=== PATIENT | female | born 1995 | race American Indian/Alaskan Native ===

== ENCOUNTER 2020-05-07 08:00 | Outpatient (CLI) | payer OTHER ==
[2020-05-07 18:51] LABS: MUDS CUTOFF CONCENTRATIONS CUTOFF CONC BELOW:
[2020-05-07 19:34] LABS: BILIRUBIN,URINE NEGATIVE (NEGATIVE); GLUCOSE, URINE (UA) NEGATIVE (NEGATIVE); KETONES,URINE (UA) NEGATIVE (NEGATIVE); LEUKOCYTE ESTERASE, URINE NEGATIVE (NEGATIVE); NITRITE,URINE NEGATIVE (NEGATIVE); OCCULT BLOOD,URINE NEGATIVE (NEGATIVE); PROTEIN,URINE NEGATIVE (NEGATIVE); UROBILINOGEN,URINE 0.2 (NORMAL) E.U./dL (NORMAL)
[2020-05-07 20:05] LABS: CLARITY,URINE CLEAR (CLEAR)
[2020-05-07 20:06] LABS: BACTERIA,URINE Rare /HPF (None Seen); RBC,URINE 0-5 /HPF (0-5); SQUAMOUS EPITHELIAL CELL,UR FEW Squamous (<= Few); WBC,URINE 0-3 /HPF (0-5)
[2020-05-07 20:07] LABS: AMPHETAMINE SCREEN,URINE NEGATIVE (NEGATIVE); BARBITURATE SCREEN,UR NEGATIVE (NEGATIVE); BENZODIAZEPINES SCREEN, URINE NEGATIVE (NEGATIVE); COCAINE SCREEN URINE NEGATIVE (NEGATIVE); METHADONE SCREEN, URINE NEGATIVE (NEGATIVE); METHAMPHETAMINES SCREEN, URINE NEGATIVE (NEGATIVE); OPIATE SCREEN, URINE NEGATIVE (NEGATIVE); OXYCODONE SCREEN, URINE NEGATIVE (NEGATIVE); PROPOXYPHENE SCREEN, URINE NEGATIVE (NEGATIVE); THC CANNABINOID SCREEN, URINE NEGATIVE (NEGATIVE); TRICYCLIC ANTIDEPRESSANT,URINE NEGATIVE (NEGATIVE)
== END 2020-05-07 23:59 | disposition home or self-care (01) ==
LOC: LAB.R 08:00
PROVIDERS: ATTEND Nurse Practitioner Obstetrics & Gynecology
DX: Z32.01 Encounter for pregnancy test, result positive (principal)
CPT/HCPCS: 80306; 81001; 87086

== ENCOUNTER 2020-05-13 18:56 | Outpatient (CLI) | payer OTHER ==
--- NOTE | 2020-05-15 11:53 | Ultrasound Report ---
PROCEDURE: OB First Trimester INDICATIONS: POSITIVE TEST OUTSIDE/PRIOR DATING DATA: Last menstrual period (LMP): 03/06/2020 LMP-based estimated date of delivery (DAVINA): 12/11/2020. First dating scan (date and location): 05/13/2020. Estimated date of delivery (DAVINA) from first dating scan: 12/11/2020. TECHNIQUE: Real-time scanning was performed of the fetus and maternal pelvic organs, with image documentation. COMPARISON: FINDINGS: Embryo: A single living intrauterine gestation is present, with a crown-rump length of 29 mm, corre sponding 29 weeks 5 day gestation. A yolk sac is present. Measurement variability in dating: +/- 4 weeks by LMP, +/- 7 days by mean sac diameter (use before 6 weeks gestation if crown-rump length not able to be measured), +/- 5 days by crown-rump length (6-12 weeks gestation). Maternal organs: Ovaries grossly unremarkable. IMPRESSION: Early single living intrauterine gestation. Reviewed by: Kiki Christensen MD on 05/13/2020 9:22 PM PDT Approved by: Kiki Christensen MD on 05/13/2020 9:22 PM PDT Station ID: [id number]
== END 2020-05-13 18:57 | disposition home or self-care (01) ==
LOC: DI 18:56
PROVIDERS: ATTEND Nurse Practitioner Obstetrics & Gynecology
DX: Z32.01 Encounter for pregnancy test, result positive (principal)

== ENCOUNTER 2020-05-24 12:01 | Outpatient (CLI) | payer OTHER ==
[2020-05-24 12:26] LABS: BASOPHILS % (AUTO) 0.5 %; EOSINOPHILS # (AUTO) 0.1 10^3/uL (0.0-0.7); EOSINOPHILS % (AUTO) 1.2 %; HCT - HEMATOCRIT 40.1 % (37.0-47.0); HGB - HEMOGLOBIN 13.4 g/dL (12.0-16.0); LYMPHOCYTES # (AUTO) 1.9 10^3/uL (1.5-3.5); LYMPHOCYTES % (AUTO) 23.1 %; MEAN CORPUSCULAR HEMOGLOBIN 30.1 pg (27.0-31.0); MEAN CORPUSCULAR HGB CONC 33.4 g/dL (32.0-36.0); MEAN CORPUSCULAR VOLUME 90.1 fL (81.0-99.0); MEAN PLATELET VOLUME 9.6 fL (7.9-10.8); MONOCYTES # (AUTO) 0.5 10^3/uL (0.0-1.0); NEUTROPHILS # (AUTO) 5.8 10^3/uL (1.5-6.6); NEUTROPHILS % (AUTO) 68.7 %; PLT - PLATELET COUNT 253 10^3/uL (130-450); RED BLOOD COUNT 4.45 10^6/uL (4.20-5.40); RED CELL DISTRIBUTION WIDTH 12.4 % (12.0-15.0); WHITE BLOOD COUNT 8.4 x10^3/uL (4.8-10.8)
[2020-05-25 10:17] LABS: HEPATITIS B SURFACE ANTIGEN NON-REACTIVE (NON-REACTIVE)
[2020-05-25 12:16] LABS: HIV AG/AB 4TH GEN NON-REACTIVE (NON-REACTIVE)
[2020-05-25 12:36] LABS: HEPATITIS C ANTIBODY NON-REACTIVE (NON-REACTIVE)
== END 2020-05-24 12:02 | disposition home or self-care (01) ==
LOC: LAB 12:01
PROVIDERS: ATTEND Advanced Practice Midwife
DX: Z34.90 Encounter for supervision of normal pregnancy, unspecified, unspecified trimester (principal); Z36.89 Encounter for other specified antenatal screening
CPT/HCPCS: 36415; 85025; 86592; 86762; 86787; 86803; 86850; 86900; 86901; 87340; 87389

== ENCOUNTER 2020-07-27 15:13 | Outpatient (CLI) | payer OTHER ==
--- NOTE | 2020-07-27 23:20 | Ultrasound Report ---
PROCEDURE: OB Detailed Eval INDICATIONS: SUPERVISION OF NORMAL OUTSIDE/PRIOR DATING DATA: Last menstrual period (LMP): 03/06/2020. LMP-based estimated date of delivery (DAVINA): 12/11/2020. First dating scan (date and location): 05/13/2020. [facility] Estimated date of delivery (DAVINA) from first dating scan: 12/11/2020. The below data below was generated using the ultrasound DAVINA of 12/11/2020 TECHNIQUE: Real-time scanning was performed of the fetus, with image documentation and biometric measurements. Endovaginal scanning: Not performed COMPARISON: 05/13/2020 FINDINGS: General: A single living intrauterine gestation is present. Presentation: Cephalic Placenta: Placental position is posterior, without previa. Low-lying placenta 1 cm from the internal cervical os. Amniotic fluid index: 13.8 cm, normal for gestational age. Largest pocket 3.9 cm. heart rate: 136 beats per minute. Maternal cervical canal: 5.6 cm long; normal length is 2.5 cm or more. biometrics: Biparietal diameter: 4.8 cm, 20 weeks 4 days Head circumference: 17.9 cm, 20 weeks 3 days Abdominal circumference: 15.2 cm, 20 weeks 2 days Femur length: 3.5 cm, 21 weeks 1 day Estimated gestational age from initial scan: 20 weeks 3 days Composite gestational age from present scan: 20 weeks 4 days Estimated weight and percentile: 367 g, 57th percentile Measurement variability in biometric dating: +/- 10 days from 12-20 weeks gestation, +/- 2 weeks from 20-30 weeks gestation, +/- 3 weeks at 30 weeks gestation or later. Anatomic survey: Neuro: Ventricles are normal at less than 10 mm. Cisterna magna is normal at 3-11 mm. Cerebellum i s normal in size and morphology. Nuchal skin fold: Normal at less than 6 mm between 14 and 20 weeks gestational age. Face: Nose and lips are normal. profile not well seen. Spine: No evidence for spina bifida. Heart: 4-chambered heart is present, with normal LVOT. RVOT not well seen. Diaphragm: Diaphragm is intact. Stomach: Left-sided stomach is present. Kidneys: No hydronephrosis. Normal is less than 5 mm in 2nd trimester, less than 7 mm in 3rd trimester. Cord: 3 vessel cord has orthotopic insertion. Bladder: Normal in size. Extremities: All 4 extremities are visualized. IMPRESSION: 1. [place] living intrauterine at 20 weeks 4 days based on today's ultrasound. This is co ncordant with the first trimester ultrasound. Fetus is in the 57th percentile for weight. 2. Normal amniotic fluid. Low-lying placenta 1 cm from the internal cervical os. 3. profile and RVOT not well seen. Otherwise normal structures. Recommend follow-up OB ultrasound. Reviewed by: Ramakrishna Marc MD on 07/27/2020 11:19 PM PDT Approved by: Ramakrishna Marc MD on 07/27/2020 11:19 PM PDT Station ID: [id number]
== END 2020-07-27 15:14 | disposition home or self-care (01) ==
LOC: DI 15:13
PROVIDERS: ATTEND Nurse Practitioner Obstetrics & Gynecology
DX: Z36.89 Encounter for other specified antenatal screening (principal); O44.42 Low lying placenta NOS or without hemorrhage, second trimester; Z3A.20 20 weeks gestation of pregnancy

== ENCOUNTER 2020-08-06 18:55 | Outpatient (CLI) | payer OTHER ==
--- NOTE | 2020-08-07 11:35 | Ultrasound Report ---
PROCEDURE: OB F/U or Repeat INDICATIONS: SUPERVISION OF NORMAL OUTSIDE/PRIOR DATING DATA: Last menstrual period (LMP): 03/06/2020. LMP-based estimated date of delivery (DAVINA): 12/11/2020. First dating scan (date and location): 05/13/2020. Estimated date of delivery (DAVINA) from first dating scan: 12/11/2020. The below data below was generated using the first trimester ultrasound DAVINA of 12/11/2020 TECHNIQUE: Real-time scanning was performed of the fetus, with image documentation and biometric measurements. Endovaginal scanning: Not performed COMPARISON: 07/27/2020 FINDINGS: General: A single living intrauterine gestation is present. Presentation: Variable Placenta: Placental position is posterior low-lying, caudal edge is within 1 cm of the internal cerv ical os Amniotic fluid index: 15.6 cm, normal for gestational age. heart rate: 137 beats per minute. Maternal cervical canal: Closed, roughly 5.3 cm in length. Estimated gestational age from initial scan: 21 weeks, 6 days. Other: Cardiac outflow tracts are well seen and appear normal. 4 chambered heart appears normal. Fet al facial profile is normal. IMPRESSION: 1. Completion of anatomic survey with normal cardiac and facial features identified. 2. Posterior placenta remains within 1 cm of the internal cervical os. Consider follow-up in tr imester for further placental migration. Reviewed by: Sultana Le MD on 08/07/2020 11:34 AM PDT Approved by: Sultana Le MD on 08/07/2020 11:34 AM PDT Station ID: [id number]
== END 2020-08-06 18:56 | disposition home or self-care (01) ==
LOC: DI 18:55
PROVIDERS: ATTEND Nurse Practitioner Obstetrics & Gynecology
DX: Z34.00 Encounter for supervision of normal first pregnancy, unspecified trimester (principal); Z36.89 Encounter for other specified antenatal screening

== ENCOUNTER 2020-09-12 14:58 | Outpatient (CLI) | payer OTHER ==
[2020-09-12 16:22] LABS: HCT - HEMATOCRIT 32.8 % (37.0-47.0); MEAN CORPUSCULAR HEMOGLOBIN 31.1 pg (27.0-31.0); MEAN CORPUSCULAR HGB CONC 33.5 g/dL (32.0-36.0); MEAN CORPUSCULAR VOLUME 92.7 fL (81.0-99.0); MEAN PLATELET VOLUME 9.2 fL (7.9-10.8); RED BLOOD COUNT 3.54 10^6/uL (4.20-5.40); WHITE BLOOD COUNT 10.2 x10^3/uL (4.8-10.8)
== END 2020-09-12 14:59 | disposition home or self-care (01) ==
LOC: LAB 14:58
PROVIDERS: ATTEND Nurse Practitioner Obstetrics & Gynecology
DX: Z34.90 Encounter for supervision of normal pregnancy, unspecified, unspecified trimester (principal); Z36.89 Encounter for other specified antenatal screening
CPT/HCPCS: 36415; 82950; 85027

== ENCOUNTER 2020-10-23 07:35 | Outpatient (CLI) | payer OTHER ==
--- NOTE | 2020-10-23 16:57 | Ultrasound Report ---
PROCEDURE: OB F/U or Repeat INDICATIONS: LOW LYING PLECENTA OUTSIDE/PRIOR DATING DATA: Last menstrual period (LMP): 03/06/2020. LMP-based estimated date of delivery (DAVINA): 12/11/2020. First dating scan (date and location): 05/13/2020. Estimated date of delivery (DAVINA) from first dating scan: 12/11/2020. The below data below was generated using the same clinical and ultrasound DAVINA of 12/11/2020 TECHNIQUE: Real-time scanning was performed of the fetus, with image documentation and biometric measurements. COMPARISON: OB ultrasound 07/27/2020, 05/13/2020, 08/06/2020 FINDINGS: General: A single living intrauterine gestation is present. Presentation: Vertex Placenta: Placental position is posterior, without previa. Placenta remains low-lying currently óscar suring 1.1 cm from the internal os. Amniotic fluid index: 14 cm, within normal limits for gestational age. Largest pocket 5.0 cm. heart rate: 133 beats per minute. Maternal cervical canal: 5.5 cm long; normal length is 2.5 cm or more. biometrics: Estimated gestational age from initial scan: 33 weeks 0 days Other: Not applicable. IMPRESSION: 1. Single live intrauterine . 2. Low-lying placenta is present measuring 1.1 cm from the internal os. This is compared to 1 cm dist ance identified on both the 07/27/2020 as well as 08/06/2020 exams. Reviewed by: Neli Canales MD on 10/23/2020 4:55 PM PDT Approved by: Neli Canales MD on 10/23/2020 4:55 PM PDT Station ID: [id number]
--- NOTE | 2020-10-23 17:05 | Ultrasound Report ---
PROCEDURE: OB Transvaginal INDICATIONS: LOW LYING PLECENTA OUTSIDE/PRIOR DATING DATA: Last menstrual period (LMP): 03/06/2020. LMP-based estimated date of delivery (DAVINA): 12/11/2020. First dating scan (date and location): 05/13/2020. Estimated date of delivery (DAVINA) from first dating scan: 12/11/2020. The below data below was generated using the same clinical and ultrasound DAVINA of 12/11/2020 TECHNIQUE: Real-time scanning was performed of the fetus, with image documentation and biometric measurements. COMPARISON: OB ultrasound 07/27/2020, 05/13/2020, 08/06/2020 FINDINGS: General: A single living intrauterine gestation is present. Presentation: Vertex Placenta: Placental position is posterior, without previa. Placenta remains low-lying currently óscar suring 1.1 cm from the internal os. Amniotic fluid index: 14 cm, within normal limits for gestational age. Largest pocket 5.0 cm. heart rate: 133 beats per minute. Maternal cervical canal: 5.5 cm long; normal length is 2.5 cm or more. biometrics: Estimated gestational age from initial scan: 33 weeks 0 days Other: Not applicable. IMPRESSION: 1. Single live intrauterine . 2. Low-lying placenta is present measuring 1.1 cm from the internal os. This is compared to 1 cm dist ance identified on both the 07/27/2020 as well as 08/06/2020 exams. Reviewed by: Neli Canales MD on 10/23/2020 5:03 PM PDT Approved by: Neli Canales MD on 10/23/2020 5:03 PM PDT Station ID: [id number]
== END 2020-10-23 07:36 | disposition home or self-care (01) ==
LOC: DI 07:35
PROVIDERS: ATTEND Nurse Practitioner Obstetrics & Gynecology
DX: O44.03 Complete placenta previa NOS or without hemorrhage, third trimester (principal); Z3A.33 33 weeks gestation of pregnancy

== ENCOUNTER 2020-11-13 15:20 | Outpatient (CLI) | payer OTHER ==
--- NOTE | 2020-11-14 09:38 | Ultrasound Report ---
PROCEDURE: OB F/U or Repeat INDICATIONS: LOW LYING PLACENTA OUTSIDE/PRIOR DATING DATA: Last menstrual period (LMP): 03/06/2020. LMP-based estimated date of delivery (DAVINA): 12/11/2020. First dating scan (date and location): 05/13/2020. Estimated date of delivery (DAVINA) from first dating scan: 12/11/2020. TECHNIQUE: Real-time scanning was performed of the fetus, with image documentation and biometric measurements. Endovaginal scanning: No COMPARISON: OB ultrasound, 10/23/2020 and 08/06/2020. FINDINGS: General: A single living intrauterine gestation is present. Presentation: Vertex Placenta: Placental position is posterior, without previa. Amniotic fluid index: 15.5 cm, normal for gestational age. heart rate: 132 beats per minute. Maternal cervical canal: 5.6 cm long; normal length is 2.5 cm or more. Estimated gestational age from initial scan: 36 weeks 0 days Other: Not applicable. IMPRESSION: 1. Single living IUP redemonstrated. 2 Low lying placenta has resolved with the inferior aspect of the placenta 3.1 cm above the internal cervical os. Reviewed by: LIONEL Allan on 11/14/2020 9:37 AM PDT Approved by: Yoko Marcano MD on 11/14/2020 9:37 AM PDT Station ID: [id number]
== END 2020-11-13 15:21 | disposition home or self-care (01) ==
LOC: DI 15:20
PROVIDERS: ATTEND Nurse Practitioner Obstetrics & Gynecology
DX: O44.00 Complete placenta previa NOS or without hemorrhage, unspecified trimester (principal); Z3A.36 36 weeks gestation of pregnancy

== ENCOUNTER 2020-11-15 13:24 | Emergency (ER) | payer OTHER ==
[2020-11-15 13:39] VITALS: BP 121/77
--- NOTE | 2020-11-15 13:55 | ED Physician Documentation ---
PD HPI URI - Stated complaint Stated Complaint: C+ ? - 36WK OB - Chief complaint Chief Complaint: Fever - History obtained from History obtained from: Patient - History of Present Illness Timing - onset: Today Timing duration: Days (1) Timing details: Gradual onset Pain level max: 3 Pain level now: 3 Associated symptoms: Fever, Chills Contributing factors: Sick contact Improves by: Other (sitting up) Worsened by: Other (lying flat) Recently seen: Clinic (OB) - Additional information Additional information: Patient is a 24-year-old female who presents to the emergency department stating that her has been tested positive for Covid, she took a home test yesterday which was negative but started having fever, body aches and cough today. Better with cough medication. Nothing makes it worse. She is about 36 weeks . She states she only feels mildly short of breath when she is lying flat, but states that she has felt this way with her as well. No history of lung issues. Review of Systems Constitutional: reports: Fever (101), Chills GI: denies: Abdominal Pain, Vomiting, Diarrhea Skin: denies: Rash Musculoskeletal: denies: Neck pain, Back pain Neurologic: denies: Headache PD PAST MEDICAL HISTORY - Past Medical History Past Medical History: No - Past Surgical History Past Surgical History: Yes Ortho: Other HEENT: Tonsil/Adenoidectomy - Present Medications Home Medications: Ambulatory Orders Medication Instructions Recorded Confirmed Iron Fum,Ps/Folic/Bcomp,C No.9 1 each PO DAILY 11/15/20 11/15/20 [Virt-Fefa Plus Capsule] - Allergies Allergies/Adverse Reactions: Allergies Allergy/AdvReac Type Severity Reaction Status Date / Time naproxen Allergy Nausea Verified 11/15/20 13:39 - Social History Does the pt smoke?: No Smoking Status: Never smoker Does the pt drink ETOH?: No Does the pt have substance abuse?: No - Immunizations Immunizations are current?: Yes PD ED PE NORMAL - Vitals Vital signs reviewed: Yes - General General: Alert and oriented X 3, No acute distress - HEENT HEENT: Ears normal, Moist mucous membranes, Pharynx benign - Neck Neck: Supple, no meningeal sign - Cardiac Cardiac: RRR, Strong equal pulses - Respiratory Respiratory: No respiratory distress, Clear bilaterally - Abdomen Abdomen: Soft, Other (gravid) - Derm Derm: Warm and dry - Extremities Extremities: No edema, No calf tenderness / cord - Neuro Neuro: Alert and oriented X 3 - Psych Psych: Normal mood, Normal affect Results - Vitals Vitals: Vital Signs - 24 hr 11/15/20 13:34 Temperature 36.8 C Heart Rate 103 H Respiratory 16 Rate Blood Pressure 121/77 O2 Saturation 99 Oxygen O2 Source Room air PD MEDICAL DECISION MAKING - ED course Complexity details: considered differential, d/w patient ED course: Patient with concern for potential Covid. Covid testing performed. She will follow up with her doctor in the patient portal for results. Counseled regarding monoclonal antibody therapy. hospital is currently critically low on monoclonal antibodies, may not be available when her test result is positive. Recommend that she call to ensure availability. No indication for x-ray. No hypoxia or respiratory distress. Lungs are clear to auscultation bilaterally. Patient counseled regarding signs and symptoms for which I believe and urgent re-evaluation would be necessary. Patient with good understanding of and agreement to plan and is comfortable going home at this time This document was made in part using voice recognition software. While efforts are made to proofread this document, sound alike and grammatical errors may occur. Departure - Departure Disposition: 01 Home, Self Care Clinical Impression: Viral URI Condition: Good Instructions: ED URI Viral Follow-Up: your,doctor in 1 week [Other] Comments: You have a Covid test pending. You need to self quarantine until the result is done and negative. The results should be done in 24-48 hours. We will call with a positive result, the fastest way to get a negative result for confirmation though is to go to the hospital website at [email or web address], click on the my [email or web address] tab and sign up for the patient portal. If any of your friends and/or family need to be tested, they can call the hospital at [phone] for an appointment to have their Covid test. As we discussed, you may be a candidate for monoclonal antibody therapy if your test is positive, however please call to ensure that we have the monoclonal antibody in stock, as currently supply is very low if not out already and the medication is backordered.
== END 2020-11-15 14:00 | disposition home or self-care (01) ==
LOC: ED 13:24
DX: O98.513 Other viral diseases complicating pregnancy, third trimester (principal); O99.513 Diseases of the respiratory system complicating pregnancy, third trimester; U07.1 COVID-19; J06.9 Acute upper respiratory infection, unspecified; Z3A.36 36 weeks gestation of pregnancy
CPT/HCPCS: 99282; 99283

== ENCOUNTER 2020-11-15 20:44 | Outpatient (CLI) | payer OTHER ==
[2020-11-15 21:43] LABS: BASOPHILS % (AUTO) 0.4 %; EOSINOPHILS # (AUTO) 0.1 10^3/uL (0.0-0.7); HCT - HEMATOCRIT 34.9 % (37.0-47.0); HGB - HEMOGLOBIN 11.4 g/dL (12.0-16.0); LYMPHOCYTES # (AUTO) 1.4 10^3/uL (1.5-3.5); LYMPHOCYTES % (AUTO) 20.4 %; MEAN CORPUSCULAR HEMOGLOBIN 30.6 pg (27.0-31.0); MEAN CORPUSCULAR HGB CONC 32.7 g/dL (32.0-36.0); MEAN CORPUSCULAR VOLUME 93.6 fL (81.0-99.0); MEAN PLATELET VOLUME 9.6 fL (7.9-10.8); MONOCYTES # (AUTO) 0.7 10^3/uL (0.0-1.0); MONOCYTES % (AUTO) 10.7 %; NEUTROPHILS # (AUTO) 4.4 10^3/uL (1.5-6.6); PLT - PLATELET COUNT 178 10^3/uL (130-450); RED BLOOD COUNT 3.73 10^6/uL (4.20-5.40); RED CELL DISTRIBUTION WIDTH 13.7 % (12.0-15.0); WHITE BLOOD COUNT 6.7 x10^3/uL (4.8-10.8)
[2020-11-15 21:48] LABS: BILIRUBIN,URINE NEGATIVE (NEGATIVE); GLUCOSE, URINE (UA) NEGATIVE (NEGATIVE); KETONES,URINE (UA) NEGATIVE (NEGATIVE); LEUKOCYTE ESTERASE, URINE NEGATIVE (NEGATIVE); NITRITE,URINE NEGATIVE (NEGATIVE); OCCULT BLOOD,URINE NEGATIVE (NEGATIVE); PROTEIN,URINE NEGATIVE (NEGATIVE); UROBILINOGEN,URINE 0.2 (NORMAL) E.U./dL (NORMAL)
[2020-11-15 21:49] LABS: CLARITY,URINE CLEAR (CLEAR)
[2020-11-15] MEDS ORDERED: MORPHINE 10 MG/ML VIAL IM STA ×2 (21:52→22:21)
[2020-11-15] MEDS ORDERED: MORPHINE 10 MG/ML VIAL ONE ×2 (22:00→22:21)
[2020-11-15 22:43] LABS: B. PARAPERTUSSIS- RESP PCR PAN NOT DETECTED; B. PERTUSSIS- RESP PCR PANEL NOT DETECTED; C. PNEUMONIAE- RESP PCR PANEL NOT DETECTED; CORONAVIRUS 229E-RESP PCR NOT DETECTED; CORONAVIRUS HKU1-RESP PCR NOT DETECTED; CORONAVIRUS NL63-RESP PCR NOT DETECTED; CORONAVIRUS OC43-RESP PCR NOT DETECTED; HUMAN METAPNEUMOVIRUS NOT DETECTED; INFLUENZA A- RESP PCR PANEL NOT DETECTED; INFLUENZA B - RESP PCR PANEL NOT DETECTED; M. PNEUMONIAE- RESP PCR PANEL NOT DETECTED; PARAINFLUENZA VIRUS 1 NOT DETECTED; PARAINFLUENZA VIRUS 2 NOT DETECTED; PARAINFLUENZA VIRUS 3 NOT DETECTED; PARAINFLUENZA VIRUS 4 NOT DETECTED; RHINOVIRUS/ENTEROVIRUS NOT DETECTED; RSV- RESP PCR PANEL NOT DETECTED; SARS-CoV-2 -RESP PCR PANEL DETECTED
[2020-11-15] MEDS ORDERED: LACTATED RINGERS 500 ML IV ONE (23:12)
[2020-11-16 02:32] VITALS: BP 119/68
--- NOTE | 2020-11-16 07:15 | Ultrasound Report ---
PROCEDURE: OB Limited INDICATIONS: lower left abdominal pain-visualize placenta OUTSIDE/PRIOR DATING DATA: Last menstrual period (LMP): 03/06/2020. LMP-based estimated date of delivery (DAVINA): 12/01/2020. First dating scan (date and location): 05/13/2020. Estimated date of delivery (DAVINA) from first dating scan: 12/11/2020. The below data below was generated using the ultrasound DAVINA of 12/11/2020 TECHNIQUE: Real-time scanning was performed of the fetus, with image documentation. Endovaginal scanning: COMPARISON: None. FINDINGS: A single living intrauterine gestation is present. Presentation: Cephalic Placenta: Placental position is posterior, without previa. A placental barraza is incidentally noted. Amniotic fluid index: 14.1 cm, normal for gestational age. heart rate: 160 beats per minutes. Maternal cervical canal: Not imaged Estimated gestational age from initial scan: 36 weeks 2 days anatomy: Chest/diaphragm, stomach/abdomen, bilateral renal regions, and urinary bladder/pelvis were visualized and appeared normal.. IMPRESSION: Live intrauterine with a gestational age 36 weeks 2 days. Findings above correspond with preliminary findings by [facility]. Reviewed by: Brayan Torres on 11/16/2020 7:13 AM PDT Approved by: Brayan Torres on 11/16/2020 7:13 AM PDT Station ID: [id number]
--- NOTE | 2020-11-16 09:21 | Ultrasound Report ---
PROCEDURE: OB Biophysical Profile INDICATIONS: well being r/t covid-19 positive pt OUTSIDE/PRIOR DATING DATA: Last menstrual period (LMP): 03/06/2020. LMP-based estimated date of delivery (DAVINA): 12/11/2020. First dating scan (date and location): 05/13/2020. Estimated date of delivery (DAVINA) from first dating scan: 12/11/2020. The below data below was generated using the ultrasound DAVINA of 12/11/2020 TECHNIQUE: Real-time scanning was performed of the fetus, with image documentation and biometric óscar surements. Biophysical profile was also obtained. COMPARISON: None. FINDINGS: General: A single living intrauterine gestation is present. Presentation: Cephalic Placenta: Placental position is posterior with fundal with fundal wrap to maternal left, without pre via. Amniotic fluid index: 17.5 cm, normal for gestational age. heart rate: 137 beats per minute. Maternal cervical canal: Closed biometrics: Estimated gestational age from initial scan: 36 weeks 3 days. Estimated weight and percentile: Not obtained Measurement variability in biometric dating: +/- 10 days from 12-20 weeks gestation, +/- 2 weeks from 20-30 weeks gestation, +/- 3 weeks at 30 weeks gestation or later. Biophysical profile: Tone: 2 points. Movement: 2 points. Respiration: 0 points. Largest pocket of fluid: 2 points. 6.6 cm. Umbilical artery Doppler: Proximal 3.28, mid 3.07, distal 2.59 IMPRESSION: 1. Biophysical profile 6/8 (respirations not identified) 2. IVET 17.5. 3. SD ratios are within normal limits but are at the upper limits of normal proximally. Reviewed by: Brayan Torres on 11/16/2020 9:20 AM PDT Approved by: Brayan Torres on 11/16/2020 9:20 AM PDT Station ID: [id number]
--- NOTE | 2020-11-16 13:21 | PROVIDER PROGRESS NOTE ---
- HPI Chief Complaint: Labor Check Current : Current EDU 12/11/20 Gestation 36 Weeks and 3 Days 1 Para 0 Vital Signs Temperature 37.7 C 11/15/20 22:05 Heart Rate 92 11/15/20 22:05 Respiratory Rate 22 11/15/20 22:05 Blood Pressure 116/68 11/15/20 22:05 O2 Saturation 100 11/15/20 22:05 Temperature 36.6 C 11/16/20 01:35 Heart Rate 91 11/16/20 01:35 Respiratory Rate 18 11/16/20 01:35 Blood Pressure 119/68 11/16/20 01:35 O2 Saturation 100 11/16/20 01:35 - Procedures OB Procedure Performed: NST Diagnosis/Indication for NST: Other NST Procedure: NST Procedure Start Date 11/15/20 Start Time 21:00 Stop Time 21:30 Vibroacoustic Stimulation Used No Patient States Movement Yes - Plan Plan: Adele is a 24yo @ 36.3wks gestation by LMP c/w 9.5wk U/S who presents with c/o left lower quadrant abdominal pain and cramping for the past several hours. In addition she is experiencing fever, body aches, chills, cough, congestion and chest pressure and has known exposure to COVID-19 positive in her household. She took a rapid home test yesterday which was negative. She states she has been able to keep on top of her fluid intake and feels she is hydrated at this time. She denies vaginal bleeding or leakage of fluid. She states she is unsure if the pain in her lower left quadrant is contraction pain or not but is concerned she may be in labor. She reports +FM. She has taken Tylenol 1000mg which improved her fever and states the highest it has been in 101. She denies nausea, vomiting, constipation and diarrhea. NST performed 11/15/2020-11/16/2020 NST read 11/16/2020 FHR baseline 150s, moderate variability with intermittent periods of minimal variability and few accelerations with no decelerations. Uterine irritability noted via tocometry Appears ill and fatigued, heart RRR w/o M/G/R, lungs CTAB, abdomen gravid, soft, and tender only to left lower quadrant with no other abdominal tenderness noted, bilateral LE's no edema. SVE closed/thick/high Vital signs: 116/68, HR 92, RR 22, O2 100 on room air, T 37.7 Imaging: Ultrasound inconclusive for placental abruption per initial report secondary to posterior location however forward portion visualized and appears WNL. Final report states posterior placenta, no previa. Incidentally noted placental barraza. BPP 6/8 with 0 for respiratory. 8/10 total with NST however this was after >1 hour of monitoring and was non-reactive in the initial 30 minutes with intermittent periods of minimal variability. Labs: Nasal SARS-CoV-2 (PCR) - POSITIVE WBC 6.7 Hgb 11.4; Hct 34.9 PLT 178 UA negative 500mL LR IV fluid. 10mg Morphine IM - pt states her pain improved initially but then returned. Assessment: 24yo @ 36.3wks gestation by LMP c/w 9.5wk U/S Left round ligament strain COVID-positive BPP 8/10 Plan: Obstetric and concerns ruled out. Encouraged bracing with coughing and warm compresses. Continue tylenol 1000mg q 8 hrs PRN pain or fever. Discussed safe medications for management of congestion. Discussed appropriate use of heat and ice to affected area. Secondary to patient feeling worsening respiratory symptoms, faintness, and fatigue she was discharged from OB triage and sent to the ED for evaluation and management of COVID symptoms. Pt will return in 24hrs for repeat NST or sooner PRN. Pt released with precautions. Strongly encouraged her to obtain pulse oximetry to track her O2 saturation and reviewed precautions/when to seek care in depth. Pt has emergency contact number. Pt verbalized understanding and agrees to above plan. She denies further questions or concerns at this time. Consult with continuous miner operator helper physician regarding above clinical picture and plan of care who verbalized agreement with the above plan and denies changes at this time. FINAL DIAGNOSIS: False labor <37wks gestation Left round ligament pain
== END 2020-11-16 01:40 | disposition home or self-care (01) ==
LOC: WFO 20:44 → FBP 20:45 → WFO 11-16 01:40
PROVIDERS: ATTEND Nurse Practitioner Obstetrics & Gynecology
DX: O47.03 False labor before 37 completed weeks of gestation, third trimester (principal); S39.011A Strain of muscle, fascia and tendon of abdomen, initial encounter; X58.XXXA Exposure to other specified factors, initial encounter; O9A.213 Injury, poisoning and certain other consequences of external causes complicating pregnancy, third trimester; O98.513 Other viral diseases complicating pregnancy, third trimester; U07.1 COVID-19; Z3A.36 36 weeks gestation of pregnancy
CPT/HCPCS: 0202U; 36415; 59025; 81001; 81003; 85025; 87086; 99214

== ENCOUNTER 2020-11-16 01:31 | Emergency (ER) | payer OTHER ==
[2020-11-16 01:59] VITALS: BP 107/61
[2020-11-16] MEDS ORDERED: ACETAMINOPHEN 500 MG TABLET PO STA (02:28)
--- NOTE | 2020-11-16 02:34 | ED Physician Documentation ---
History of Present Illness - Stated complaint Stated Complaint: COVID POS, FEVER, COUGH, LOW ABD/BACK PX - Chief complaint Chief Complaint: General - History obtained from History obtained from: Patient - Additonal information Additional information: Patient comes emergency department chief complaint of left low back pain. The patient states that it started around 1800 and that it shoots from her left lumbar musculature area over toward her hip. She states she has had occasional pains going down her left leg. Patient denies any hematuria or dysuria. No vaginal bleeding. No fevers. The patient was just diagnosed with Covid today and has been doing some coughing. She is 36 weeks , and just before this, went to see her PRINCIPAL ASSOCIATE, who did labs, urinalysis, and an ultrasound, all of which were unremarkable. Patient was also sent for monitoring labor and delivery. She was given 10 mg of morphine IV while there, but states that when she moves certain ways she still gets shooting pain. Patient states she has to lie perfectly still on her side to keep from hurting. The patient states that she has not had pain to this degree so far in her , though she did have some similar pain to a lesser degree earlier. Patient states she is managed that when it comes up with Tylenol. Patient denies any other complaints at this time. No shortness of breath. No chest pain. No distinct injury. Review of Systems Ten Systems: 10 systems reviewed and negative Constitutional: reports: Reviewed and negative Eyes: reports: Reviewed and negative Ears: reports: Reviewed and negative Nose: reports: Reviewed and negative Throat: reports: Reviewed and negative Cardiac: reports: Reviewed and negative Respiratory: reports: Reviewed and negative GI: reports: Reviewed and negative : reports: Reviewed and negative Skin: reports: Reviewed and negative Musculoskeletal: reports: Back pain Neurologic: reports: Reviewed and negative Psychiatric: reports: Reviewed and negative Endocrine: reports: Reviewed and negative Immunocompromised: reports: Reviewed and negative PD PAST MEDICAL HISTORY - Past Surgical History Past Surgical History: Yes Ortho: Other HEENT: Tonsil/Adenoidectomy - Present Medications Home Medications: Ambulatory Orders Medication Instructions Recorded Confirmed Iron Fum,Ps/Folic/Bcomp,C No.9 1 each PO DAILY 11/15/20 11/15/20 [Virt-Fefa Plus Capsule] - Allergies Allergies/Adverse Reactions: Allergies Allergy/AdvReac Type Severity Reaction Status Date / Time naproxen Allergy Nausea Verified 11/15/20 13:39 - Social History Does the pt smoke?: No Smoking Status: Never smoker Does the pt drink ETOH?: No Does the pt have substance abuse?: No - Immunizations Immunizations are current?: Yes PD ED PE NORMAL - Vitals Vital signs reviewed: Yes - General General: Alert and oriented X 3, No acute distress - HEENT HEENT: Atraumatic, PERRL, EOMI, Moist mucous membranes - Neck Neck: Supple, no meningeal sign - Cardiac Cardiac: RRR, No murmur, Strong equal pulses - Respiratory Respiratory: No respiratory distress, Clear bilaterally - Abdomen Abdomen: Soft, Non tender, Other (Gravid) - Back Back: No CVA TTP, No spinal TTP, Other (Tenderness left lumbar paraspinal musculature focally.) - Derm Derm: Normal color, Warm and dry, No rash - Extremities Extremities: No deformity, No edema, No calf tenderness / cord - Neuro Neuro: Alert and oriented X 3, car shifter 2-12 intact, Normal speech - Psych Psych: Normal mood, Normal affect Results - Vitals Vitals: Vital Signs - 24 hr 11/16/20 11/16/20 01:39 02:42 Temperature 37.0 C 37.0 C Heart Rate 76 76 Respiratory 28 H 24 Rate Blood Pressure 107/61 107/61 O2 Saturation 100 99 Oxygen O2 Source Room air PD MEDICAL DECISION MAKING - ED course Complexity details: considered differential, d/w patient ED course: I discussed with the patient that there is really not much else from the an emergency perspective that can be done in terms of either diagnosing or treating her pain. The patient has completely normal vital signs. She has focal tender ness in her lumbar musculature and her pain seems to be mechanical and positional. She has equal pulses distally and I do not suspect an aneurysm or dissection of the aorta at this time. Patient is neurologically intact and without vaginal symptoms and has been cleared by OB. Additionally, her labs are unremarkable. I have advised the patient that I do not feel it is in her interest or the babies to give her any further narcotics in the emergency department at this time. We have discussed using Tylenol, heat, ice, stretching, and massage to help with some of the discomfort. I also suspect her back pain will improve when her cough improves. We have discussed the need for follow-up with OB. Departure - Departure Disposition: 01 Home, Self Care Clinical Impression: Back pain affecting in third trimester Condition: Stable Instructions: Preg Back Pain, ED Pelvic Pain Preg UKO 2 or 3 Tri Comments: You have had extensive testing today, all of which has been reassuring, Except for the positive Covid test. At this point in time, given the coughing and your late stage of , as well as the symptoms and circumstances you have described, your pain appears musculoskeletal in nature. This is a very common malady in late and is Due to a variety of factors, including the weight and positioning of your uterus, the natural loosening of joints that occurs in preparation for , and the altered mechanics of your back, secondary to the . Additionally, the coughing as further mechanical strain. You have been treated with a full dose of morphine already, and you are unable to receive anti-inflammatories, due to your late stage . The only other treatment during for your pain is Tylenol, which you may take at normal doses. Unfortunately, there is no medication that is going to really take this pain away, and you will need to use other methods to try to avoid and improve your symptoms, such as positioning, ice, heat, massage, and stretching. As her cough subsides, the back pain also may improve, but given your late stage of , it is also possible that this will be an issue on and off until your baby is delivered. Please continue to follow-up with your OB specialist, as scheduled. You may address any further concerns with her. At this time, your physical exam and vital signs, as well as the testing that you have had done earlier today, do not suggest an emergent cause of your pain. Additionally, monitoring of your baby is reassuring. Discharge Date/Time: 11/16/20 02:47
== END 2020-11-16 02:47 | disposition home or self-care (01) ==
LOC: ED 01:31
DX: O98.513 Other viral diseases complicating pregnancy, third trimester (principal); U07.1 COVID-19; O99.891 Other specified diseases and conditions complicating pregnancy; M54.5 Low back pain; Z3A.36 36 weeks gestation of pregnancy
CPT/HCPCS: 99282; 99283; A9270; 80053; 83690; 85025

== ENCOUNTER 2020-11-16 18:12 | Outpatient (CLI) | payer OTHER ==
[2020-11-16 18:29] VITALS: BP 130/76
--- NOTE | 2020-11-21 17:09 | PROCEDURE REPORT ---
- HPI Diagnosis/Indication for NST: Other Current EDU 12/11/20 Gestation 36 Weeks and 4 Days 1 Para 0 Vital Signs Temperature 36.9 C 11/16/20 18:28 Heart Rate 87 11/16/20 18:28 Respiratory Rate 18 11/16/20 18:28 Blood Pressure 130/76 11/16/20 18:28 O2 Saturation 100 11/16/20 18:28 Temperature 36.9 C 11/16/20 18:28 Heart Rate 87 11/16/20 18:28 Respiratory Rate 18 11/16/20 18:28 Blood Pressure 130/76 11/16/20 18:28 O2 Saturation 100 11/16/20 18:28 - NST Procedure NST Procedure Start Date 11/16/20 Start Time 18:23 Stop Time 18:58 Vibroacoustic Stimulation Used No Patient States Movement Yes: Decreased - Results and Plan Plan: NST performed 11/16/2020 NST read 11/16/2020 NST reactive. FHR baseline 140s, moderate variability, + accels, no decels No contractions appreciated via tocometry
== END 2020-11-16 19:00 | disposition home or self-care (01) ==
LOC: WFO 18:12 → FBP 18:13 → WFO 19:00
PROVIDERS: ATTEND Nurse Practitioner Obstetrics & Gynecology
DX: O36.8130 Decreased fetal movements, third trimester, not applicable or unspecified (principal); Z3A.36 36 weeks gestation of pregnancy; O47.03 False labor before 37 completed weeks of gestation, third trimester; S39.011A Strain of muscle, fascia and tendon of abdomen, initial encounter; X58.XXXA Exposure to other specified factors, initial encounter; O9A.213 Injury, poisoning and certain other consequences of external causes complicating pregnancy, third trimester; O98.513 Other viral diseases complicating pregnancy, third trimester; U07.1 COVID-19; O99.513 Diseases of the respiratory system complicating pregnancy, third trimester; J06.9 Acute upper respiratory infection, unspecified; O99.891 Other specified diseases and conditions complicating pregnancy; M54.5 Low back pain
CPT/HCPCS: 0202U; 36415; 59025; 76815; 76819; 81003; 85025; 87635; 96372; 99282; 99283; A9270; J7120; 80053; 81001; 83690; 87086; 99214

== ENCOUNTER 2020-11-23 12:00 | Outpatient (CLI) | payer OTHER | END 2020-11-23 23:59 | disposition home or self-care (01) | LOC: LAB.WC 12:00 | PROVIDERS: ATTEND Nurse Practitioner Obstetrics & Gynecology | DX: Z36.85 Encounter for antenatal screening for Streptococcus B (principal) | CPT/HCPCS: 87797 ==

== ENCOUNTER 2020-12-12 12:48 | Inpatient (IN) | payer OTHER ==
[2020-12-12] MEDS ORDERED: SODIUM CHLORIDE FLUSH 0.9% 10 ML SYRINGE IVP PRN (13:56)
[2020-12-12] MEDS ORDERED: LIDOCAINE-MPF 1% 30 ML VIAL ID PRN (13:56)
[2020-12-12] MEDS ORDERED: METHYLERGONOVINE 0.2 MG/ML VIAL IM PRN (13:56)
[2020-12-12] MEDS ORDERED: ONDANSETRON 4 MG/2 ML VIAL IVP PRN (13:56)
[2020-12-12] MEDS ORDERED: CARBOPROST TROMETHAMINE 250 MCG/ML AMP IM PRN (13:56)
[2020-12-12] MEDS ORDERED: OXYTOCIN 10 UNIT/ML VIAL IM PRN (13:56)
[2020-12-12] MEDS ORDERED: miSOPROStoL 200 MCG TABLET BC PRN (13:56)
[2020-12-12] MEDS ORDERED: TRANEXAMIC ACID IN NACL 1,000 MG/100 ML BAG IV PRN (13:56)
[2020-12-12 14:03] LABS: BASOPHILS % (AUTO) 0.2 %; EOSINOPHILS # (AUTO) 0.1 10^3/uL (0.0-0.7); EOSINOPHILS % (AUTO) 0.8 %; HCT - HEMATOCRIT 36.8 % (37.0-47.0); HGB - HEMOGLOBIN 12.3 g/dL (12.0-16.0); LYMPHOCYTES % (AUTO) 18.7 %; MEAN CORPUSCULAR HEMOGLOBIN 30.6 pg (27.0-31.0); MEAN CORPUSCULAR HGB CONC 33.4 g/dL (32.0-36.0); MEAN CORPUSCULAR VOLUME 91.5 fL (81.0-99.0); MEAN PLATELET VOLUME 10.7 fL (7.9-10.8); MONOCYTES # (AUTO) 0.7 10^3/uL (0.0-1.0); MONOCYTES % (AUTO) 6.9 %; NEUTROPHILS # (AUTO) 7.6 10^3/uL (1.5-6.6); PLT - PLATELET COUNT 216 10^3/uL (130-450); RED BLOOD COUNT 4.02 10^6/uL (4.20-5.40); RED CELL DISTRIBUTION WIDTH 14.1 % (12.0-15.0); WHITE BLOOD COUNT 10.8 x10^3/uL (4.8-10.8)
[2020-12-12] MEDS: miSOPROStoL 100 MCG TABLET BC SCH ×2 (14:35→20:08)
--- NOTE | 2020-12-12 16:19 | HISTORY & PHYSICAL EXAMINATION ---
Admit History - Visit Reason Visit Reason: Other - : 1 Parity: 0 Premature: 0 Ectopic: 0 : 0 Care: positive: [facility] Risk/History: positive: None Complications This : positive: None Smoking Status: Never smoker - Mother's Labs Mother's Blood Type: positive: O Mother's RH: positive: Positive GBS: positive: Group B Strep Positive Rubella Status: positive: Immune Meds/Allgy - Home Medications Home Medications: Ambulatory Orders Medication Instructions Recorded Confirmed Iron Fum,Ps/Folic/Bcomp,C No.9 1 each PO DAILY 11/15/20 11/15/20 [Virt-Fefa Plus Capsule] - Allergies Allergies/Adverse Reactions: Allergies Allergy/AdvReac Type Severity Reaction Status Date / Time naproxen Allergy Nausea Verified 11/15/20 13:39 Review of Systems - Constitutional Constitutional: denies: Fever, Chills, Malaise - Eyes Eyes: denies: Blurred vision, Spots in vision, Dipolpia - Cardiovascular Cariovascular: denies: Irregular heart rate, Palpitations, Chest pain - Respiratory Respiratory: denies: Cough, SOB at rest - Gastrointestinal Gastrointestinal: denies: Constipation, Diarrhea, Change in bowel habits - Integumentary Integumentary: denies: Rash, Pruritis - Neurological Neurological: denies: Headache Physical - Abdominal Exam Vital Signs: Temp Pulse Resp BP Pulse Ox 36.7 C 78 16 133/76 H 12/12/20 14:04 12/12/20 14:04 12/12/20 14:04 12/12/20 14:04 Contraction Frequency (min/apart): intermittent Contraction Intensity: positive: Mild Uterine Resting Tone: positive: Soft - Monitoring Heart Rate Baseline: 150 Strip Review: positive: Category I - Presentation Presentation: positive: Vertex - Vaginal Exam Membranes: positive: Membranes intact Dilation (in cm): 1 Effacement (%): 50 Station: positive: -3 Cervical Position: positive: Posterior - Speculum Exam Speculum Exam Performed: positive: No Plan for Labor - Plan For Labor I expect patient to be DC'd or transferred within 96 hours.: Yes Plan for Labor: Adele presents to [facility] for elective induction of labor at 40.1wks gestation. She denies changes VB, Lof, or contractions and she reports +FM. SVE deferred upon arrival secondary to absence of contractions appreciated by pt and SVE yesterday /-3 and posterior. She has been a patient of [facility] for the duration of her which has been complicated by her COVID infection at 35wks gestation as well as a low lying placenta which did resolve on repeat ultrasound and on most recent ultrasound was noted to be 3.3cm from the internal cervical os. She is also noted to be GBS positive. Dating criteria: LMP 03/06/2020 - DAVINA by LMP 03/06/2020 Initial U/S @ 9.5wks gestation c/w LMP dating Serial exams - agree OB Hx: G1: Current Medications: PNV; ferrous sulfate 325mg PO daily Allergies: Naproxen (Severe) PMHx: unremarkable PSHx: ankle reconstructed (2011) Social Hx: Never smoker. No ETOH or IVDA. Family Hx: DE <65 MGM; HTN - MGM; Lung cancer - PGF; Asthma- PGM; Alcoholism and drug abuse - MGF course: LMP 03/06/2020 LMP davina: 12/11/2020 Initial U/S: at 9.5wks c/w LMP for FINAL davina 12/11/2020 O pos/Rubella immune Varicella immune Gentic testing: discussed and declines FAS: WNL with the exception of incomplete visualization of facial profile and RVOT. Placenta is posterior and low-lying (1cm from cervicla os). Size c/w dating (EFW 57%tile). F/u U/S: posterior placenta, still low lying with edge 1cm from internal os. Normal cardiac and facial features. Follow up for low lying placenta at 32wks- ordered 09/18-Placenta remains low lying - repeat @ 36wks and if unchanged F/u @ 36 reveals low-lying placenta has resolved (3.3cm) Glucola 131 Flu: Given 12/06/20 TDAP 09/18 COVID vacc - no (had infection 10/2020) GBS & GC/CT at 36 weeks POSITIVE HSV: denies self and partner. Breast pump Rx 09/18 MOD: . : Isai. IOL scheduled 12/12/20 pp contraception: PAP: 05/24/2020-neg Physical Exam: Normocephalic, atraumatic, Heart RRR w/o M/G/R Lungs CTAB Abdomen gravis, soft, nontender EFW 3400g SVE deferred FHR baseline 150s, moderate variability, + accels, no decels Contractions palpate mild intermittently with soft resting tone, not appreciated by pt Bilateral LE's trace edema. Mood is good Assessment: 24yo @ 40.1wks gestation by LMP c/w 9.5wk U/S GBS positive Elective IOL FHR category I Plan: 50mcg BC misoprostol q 4 hrs for preinduction cervical ripening Continuous monitoring Jacuzzi PRN. Nitrous oxide PRN. Epidural per maternal request. Initial IPAP for GBS prophylaxis per protocol with SROM or active labor. Anticipate
[2020-12-12] MEDS ORDERED: SODIUM CHLORIDE FLUSH 0.9% 10 ML SYRINGE IVP SCH (17:00)
[2020-12-12] MEDS ORDERED: ZOLPIDEM 5 MG TABLET PO PRN (18:24)
[2020-12-12] MEDS ORDERED: TERBUTALINE 1 MG/ML VIAL SUBQ PRN (19:56)
[2020-12-13] MEDS: miSOPROStoL 100 MCG TABLET BC SCH (00:16)
[2020-12-13] MEDS: LACTATED RINGERS 1,000 ML IV SCH ×4 (03:15→17:04)
[2020-12-13] MEDS ORDERED: AMPICILLIN 2 GM in SODIUM CHLORIDE 0.9% MINIBAG 100 ML IV ONE (03:19)
[2020-12-13] MEDS: fentaNYL 100 MCG/2 ML VIAL IVP PRN ×2 (03:38→05:06)
[2020-12-13] MEDS: AMPICILLIN 1 GM in SODIUM CHLORIDE 0.9% MINIBAG 100 ML IV SCH ×3 (07:35→16:05)
[2020-12-13] MEDS ORDERED: ROPIVACAINE 0.2% 200 MG/100 ML BAG EP ONE (09:17)
[2020-12-13] MEDS ORDERED: diphenhydrAMINE INJ 50 MG/ML VIAL IVP PRN (10:01)
[2020-12-13] MEDS ORDERED: NALBUPHINE 10 MG/ML AMP IVP PRN (10:01)
[2020-12-13] MEDS ORDERED: ePHEDrine 50 MG/ML VIAL IVP PRN (10:01)
[2020-12-13] MEDS ORDERED: NALOXONE 0.4 MG/ML VIAL IVP PRN (10:01)
[2020-12-13] MEDS ORDERED: METOCLOPRAMIDE 10 MG/2 ML VIAL IVP PRN (10:01)
[2020-12-13] MEDS ORDERED: ROPIVACAINE 0.2% 200 MG/100 ML BAG EP PRN (10:01)
[2020-12-13] MEDS ORDERED: ONDANSETRON 4 MG/2 ML VIAL IVP PRN (10:01)
--- NOTE | 2020-12-13 10:05 | ANESTHESIA ---
Pre-Anesthesia VS, & Labs - Diagnosis term labor, IUP - Procedure labor epidural for Vital Signs: Temp Pulse Resp BP Pulse Ox 36.7 C 78 16 133/76 H 12/12/20 14:04 12/12/20 14:04 12/12/20 14:04 12/12/20 14:04 Height: 5 ft 7 in Weight (kg): 74.843 kg Body Mass Index: 25.8 BMI Classification: Overweight - NPO Last Fluid Intake: t/o night Last Food Intake: full dinner - Is Patient ?: Yes - Lab Results Current Lab Results: Laboratory Tests 12/12/20 13:35: WBC 10.8, RBC 4.02 L, Hgb 12.3, Hct 36.8 L, MCV 91.5, MCH 30.6, MCHC 33.4, RDW 14.1, Plt Count 216, MPV 10.7, Neut # (Auto) 7.6 H, Lymph # (Auto) 2.0, [place] # (Auto) 0.7, Eos # (Auto) 0.1, Baso # (Auto) 0.0, Absolute Nucleated RBC 0.00, Nucleated RBC % 0.0 12/12/20 13:32: Blood Type O POSITIVE, Antibody Screen NEGATIVE Lab results reviewed: Yes Fish Bones: 12/12/20 13:35 Home Medications and Allergies Active Medications Carboprost Tromethamine (Carboprost Tromethamine 250 Mcg/Ml Amp) 250 mcg IM Q15M PRN PRN Reason: Step 4: Hemorrhage protocol Stop: 12/17/20 13:56 Diphenhydramine HCl (Diphenhydramine Inj 50 Mg/Ml Vial) 12.5 - 25 mg IVP Q6HR PRN PRN Reason: ITCHING Ephedrine Sulfate (Ephedrine 50 Mg/Ml Vial) 5 mg IVP Q5M PRN PRN Reason: For SBP<100;give until SBP>100 Fentanyl (Fentanyl 100 Mcg/2 Ml Vial) 50 mcg IVP Q1HR PRN PRN Reason: PAIN Last Admin: 12/13/20 05:06 Dose: 50 mcg Documented by: Oxytocin/Sodium Chloride (Pitocin/Sodium Chloride) 500 mls @ 999 mls/hr IV PRN PRN; Protocol PRN Reason: POST- HEMORR PREVENTION Stop: 12/17/20 13:56 Tranexamic Acid (Tranexamic 1,000 Mg/100ml-Nacl) 1,000 mg in 100 mls @ 600 mls/hr IV .ONCE PRN PRN Reason: EBL >1200mL and within 3hr Stop: 12/17/20 13:56 Lactated Ringer's (Lr) 1,000 mls @ 100 mls/hr IV .Q10H [facility] Last Admin: 12/13/20 07:35 Dose: 999 mls/hr Documented by: Ampicillin Sodium 1 gm/ Sodium (Chloride) 100 mls @ 200 mls/hr IV Q4HR [facility] Last Admin: 12/13/20 07:35 Dose: 200 mls/hr Documented by: Lidocaine HCl (Lidocaine-Mpf 1% 30 Ml Vial) 30 ml ID .ONCE PRN PRN Reason: PERINEAL REPAIR Stop: 12/17/20 13:56 Methylergonovine Maleate (Methylergonovine 0.2 Mg/Ml Vial) 0.2 mg IM .ONCE PRN PRN Reason: Step 2: Hemorrhage protocol Stop: 12/17/20 13:56 Metoclopramide HCl (Metoclopramide 10 Mg/2 Ml Vial) 10 mg IVP Q6HR PRN PRN Reason: Nausea / Vomiting Misoprostol (Misoprostol 200 Mcg Tablet) 800 mcg BC .ONCE PRN PRN Reason: Step 3: Hemorrhage protocol Stop: 12/17/20 13:56 Misoprostol (Misoprostol 100 Mcg Tablet) 50 mcg BC Q4H [facility] Last Admin: 12/13/20 00:16 Dose: 50 mcg Documented by: Ondansetron HCl (Ondansetron 4 Mg/2 Ml Vial) 4 mg IVP Q4HR PRN PRN Reason: Nausea / Vomiting Ondansetron HCl (Ondansetron 4 Mg/2 Ml Vial) 4 mg IVP Q6HR PRN PRN Reason: Nausea / Vomiting Oxytocin (Oxytocin 10 Unit/Ml Vial) 10 unit IM .ONCE PRN PRN Reason: Step one: If no IV access Stop: 12/17/20 13:56 Sodium Chloride (Sodium Chloride Flush 0.9% 10 Ml Syringe) 10 ml IVP 0100,0900,1700 [facility] Sodium Chloride (Sodium Chloride Flush 0.9% 10 Ml Syringe) 10 ml IVP PRN PRN PRN Reason: NEEDED PER PROVIDER ORDERS Terbutaline Sulfate (Terbutaline 1 Mg/Ml Vial) 0.25 mg SUBQ PRN PRN PRN Reason: uterine rescusitation Zolpidem Tartrate (Zolpidem 5 Mg Tablet) 5 mg PO QPM PRN PRN Reason: Insomnia Last Admin: 12/12/20 21:35 Dose: 5 mg Documented by: Iron Fum,Ps/Folic/Bcomp,C No.9 [Virt-Fefa Plus Capsule] 1 each PO DAILY 11/15/20 Allergies/Adverse Reactions: Allergies Allergy/AdvReac Type Severity Reaction Status Date / Time naproxen Allergy Nausea Verified 11/15/20 13:39 Anes History & Medical History - Anesthetic History Anesthesia Complications: reports: No previous complications Family history of Anesthesia Complications: Denies Family history of Malignant Hyperthermia: Denies - Medical History Smoking Status: Never smoker History of Cancer?: No - Surgical History Eyes Ears Nose Throat (EENT): reports: Tonsil/Adenoidectomy Orthopedic: reports: Other (ankle surgery) - Obstetrical History : 1 Parity: 0 Events: reports: None Complications: reports: None Plan Anesthesia Type: Epidural Consent for Procedure(s) Verified and Reviewed: Yes Code Status: Attempt Resuscitation ASA classification: 2-Mild systemic disease Is this case an emergency?: No
--- NOTE | 2020-12-13 10:06 | PROVIDER PROGRESS NOTE ---
Labor Progress Note - Uterine Monitoring Uterine Monitoring Mode: positive: External toco Contraction Frequency (min/apart): 2-3 Contraction Intensity: positive: Strong Uterine Resting Tone: positive: Soft - Monitoring Monitor Mode: positive: External ultrasound Heart Rate Baseline: 140 Heart Rate Variability: positive: Moderate (6-25 bmp) Accelerations: positive: Present, 15x15 Decelerations: positive: None Strip Review: positive: Category I - Vaginal Exam Dilation (in cm): 7 Effacement (%): 100 Station: 1 Cervical Position: Midposition - Labor Progress Note Labor Progress Note/Additional Text: S: Pt requests epidural for pain management. She states she is exhausted and despite having taken ambien she did not sleep at all last night. Her is supportive at the bedside. O: FHR baseline 140s, moderate variability, + accels, no decels Contractions palpate strong every 2-4 minutes with soft resting tone SVE 7/100/+1, midposition. Vertex. Membranes intact S/p 3 doses of 50mcg BC misoprostol for preinduction cervical ripening s/p 2 doses of ampicillin per protocol for GBS prophylaxis A: 24yo @ 40.2wks gestation by LMP c/w 9.5wk U/S Active labor GBS positive FHR Category I P: Continuous monitoring Expectant management. Encouraged pt to sleep. Will consider AROM with next SVE. Anesthesia notified to present for epidural placement. Continue ampicillin for GBS prophylaxis per protocol Anticipate . Pt verbalized understanding and agrees to above plan. She denies further questions or concerns at this time.
--- NOTE | 2020-12-13 15:40 | PROVIDER PROGRESS NOTE ---
Labor Progress Note - Uterine Monitoring Uterine Monitoring Mode: positive: External toco Contraction Frequency (min/apart): 2-4 Contraction Intensity: positive: Strong Uterine Resting Tone: positive: Soft - Monitoring Monitor Mode: positive: External ultrasound Heart Rate Baseline: 125 Heart Rate Variability: positive: Moderate (6-25 bmp) Accelerations: positive: Present, 15x15 Decelerations: positive: Late, Variable, Intermittent (<50% x20 min) Strip Review: positive: Category II - Vaginal Exam Dilation (in cm): 8 Effacement (%): 100 Station: 1 Cervical Position: Anterior - Labor Progress Note Labor Progress Note/Additional Text: S: Pt comfortable with her epidural. She is feeling much more rested and is hoping the baby will come soon. She is well supported by her . O: FHR baseline 125, moderate variability, +accels, occasional variable deceleration and occasional subtle late decelerations - overall reassuring. Contractions palpate strong every 2-4 minutes with soft resting ton SVE 8/100/+1, anterior SROM @ 1343 moderate amount of clear fluid. A: 24yo @ 40.2wks gestation by 9.5wks U/S FHR Category II GBS positive P: Continue expectant management. Continuous monitoring. Anticipate .
--- NOTE | 2020-12-13 16:34 | PROVIDER PROGRESS NOTE ---
Labor Progress Note - Uterine Monitoring Uterine Monitoring Mode: positive: External toco Contraction Frequency (min/apart): 4-7 Contraction Intensity: positive: Strong Uterine Resting Tone: positive: Soft - Monitoring Monitor Mode: positive: External ultrasound Heart Rate Baseline: 135 Heart Rate Variability: positive: Moderate (6-25 bmp) Accelerations: positive: Absent Decelerations: positive: Variable, Recurrent (>50% x20 min) Strip Review: positive: Category II - Vaginal Exam Dilation (in cm): 9 Effacement (%): 100 Station: 1 - Labor Progress Note Labor Progress Note/Additional Text: S: Pt comfortable with epidural. Feeling increased vaginal and rectal pressure with contractions. O: FHR baseline 135, moderate variability, no accels, recurrent variable decelerations with contractions. Contractions palpate strong every 3-7 minutes with soft resting tone SVE 9 anteriorly with no cervix posterior. Attempted pushing with patient and good maternal pushing effort with contraction however anterior lip unable to be reduced so pushing was stopped. Pt is in exaggerated left side lying position. FHR recovered following prolonged late deceleration with fluid bolus and O2 administration. AROM x 3 hours A: 24yo @ 40.2wks gestation by LMP c/w 9.5wk U/S Active labor GBS positive - s/p 3 doses of Ampicillin for prophylaxis per protocol FHR Category II P: Continue expectant management of labor. Initiate amnioinfusion now Continuous monitoring. Anticipate .
[2020-12-13] MEDS: OXYTOCIN/SODIUM CHLORIDE 500 ML IV PRN ×2 (19:18→20:04)
[2020-12-13] MEDS ORDERED: HYDROCORTISONE 1% CREAM 28 GM TUBE PR PRN (19:51)
[2020-12-13] MEDS ORDERED: WITCH HAZEL/GLYCERIN 1 PAD TOP PRN (19:51)
--- NOTE | 2020-12-13 20:05 | DELIVERY NOTE ---
Delivery Note - Labor Labor: positive: Augmented by ARM - Infant Delivery Method Delivery Method: positive: Spontaneous vaginal delivery - Cervical Ripening Method Cervical Ripening Method: positive: Misoprostil - Presentation Presentation: positive: Vertex, RUSSELL - right occiput anterior - Nuchal Cord Nuchal Cord: positive: Present, Reduced - Amniotic Fluid Description Amniotic Fluid Description: positive: Clear - Episiotomy Type Episiotomy Type: positive: None - Laceration Laceration: positive: 2nd degree, Perineal, Vaginal - Suture Suture Type: positive: Vicryl Suture Size: positive: 2-0 - Delivery Outcome Delivery Outcome: positive: Livebirth - [place]: positive: Placed in direct skin contact with mother, Stimulated, Warmed, Winters used [place] sex: positive: Male - Cord Cord: positive: 3 vessels - Placenta Placenta: positive: Intact, Spontaneous - Estimated Blood Loss Estimated Blood Loss (in cc): 350 - Post Delivery Events Post Delivery Events: positive: No post delivery events - Delivery Comments (Free Text/Narrative) Delivery Comments (Free Text/Narrative): Labor: This 24yo @ 40.2wks gestation presented on 12/12/2020 at 1300 for elective induction of labor. SVE was deferred at time of admission. FHR baseline demonstrated Category I pattern initially and pt was given 3 doses of 50mcg BC misoprostol q 4 hours for preinduction cervical ripening. She progressed /+1 and an epidural was placed per maternal request. AROM occurred at 1343 and was noted to be a moderate amount of clear fluid. FHR pattern then demonstrated a Category II pattern and began to have recurrent variable decelerations and was noted to have a persistent anterior cervical lip which was becoming increasingly edematous. Pt was placed in an exaggerated left side lying followed by an exaggerated right side lying position and an amnioinfusion was initiated with a 250cc bolus followed by 200cc/hr maintenance infusion. She was also given 25mg of IV benadryl. call center dispatcher physician notified and present on the unit for delivery. Pt progressed to c/c/+2 at 1810 with onset of active pushing at 1818. : Normal of viable male infant on 12/13/2020 @ 1907. Nuchal cord x 1 was reduced. The was placed on maternal abdomen, stimulated, dried, and placed skin to skin. Apgars were 9/9 at 1 and 5 minutes respectively. Pitocin administered via IV for hemostasis. The umbilical cord was allowed to stop pulsating at which time it was doubly clamped by CNM and cut by FOJosselyn. 3VC. Cord blood was obtained. Fundal massage and gentle cord traction applied for active management of the third stage. Placenta delivered spontaneously and intact at 1915. EBL 350mL. Fourth stage: Uterine fundus firm and there is no excessive bleeding. The perineum, vagina, and cervix were inspected and noted to have a 2nd degree perineal laceration which was repaired using a 2-[address]-1 needle in standard fashion, under sterile conditions. Vaginal and rectal examination following repair was done. Tissues well approximated. Family bonding well. Both mother and baby were left in stable condition.
[2020-12-13] MEDS: ACETAMINOPHEN 500 MG TABLET PO SCH (21:42)
[2020-12-13] MEDS: IBUPROFEN 800 MG TABLET PO SCH (21:43)
[2020-12-13] MEDS: DOCUSATE SODIUM 100 MG CAPSULE PO SCH (21:43)
[2020-12-14] MEDS: IBUPROFEN 800 MG TABLET PO SCH ×3 (03:35→20:10)
[2020-12-14] MEDS: ACETAMINOPHEN 500 MG TABLET PO SCH ×3 (05:18→23:32)
[2020-12-14] MEDS: DOCUSATE SODIUM 100 MG CAPSULE PO SCH (20:10)
[2020-12-15] MEDS: IBUPROFEN 800 MG TABLET PO SCH ×2 (02:13→07:55)
[2020-12-15 07:23] VITALS: BP 122/73
[2020-12-15] MEDS: DOCUSATE SODIUM 100 MG CAPSULE PO SCH (07:54)
[2020-12-15] MEDS: ACETAMINOPHEN 500 MG TABLET PO SCH (07:55)
--- NOTE | 2020-12-15 11:05 | PROVIDER PROGRESS NOTE ---
Subjective - Subjective Subjective: S: Bonding well with baby. without difficulty. Bleeding decreased and is light. Pain well controlled with oral medications. is supportive at the bedside. O: BP 124/73, HR 87, RR 19, T 36.8 Heart RRR w/o M/G/R, lungs CTAB, abdomen soft and nontedner with fundus firm at U-1, perineum intact, repair with mild edema, light lochia rubra, bilateral LE's trace edema A: 24yo -->P1 PPD#1 s/p TSVD viable male 2nd degree perineal laceration -intact P: Continue routine care and medications. Evaluate for discharge home tomorrow. Objective - Vital Signs/Intake & Output Vital Signs: Vital Signs x48h Temp Pulse Resp BP Pulse Ox 12/15/20 07:20 36.6 C 66 16 122/73 99 Intake & Output: Intake & Output 12/12/20 12/13/20 12/14/20 12/15/20 23:59 23:59 23:59 23:59 Intake Total 5400 2100 1000 Output Total 1500 Balance 3900 2100 1000 - Lab Results Fish Bones: 12/12/20 13:35
--- NOTE | 2020-12-15 11:06 | Discharge Plan ---
Discharge Plan Problem Reviewed?: Yes Disposition: Home, Self Care Condition: Good Diet: Regular Activity Restrictions: No Restrictions Shower Restrictions: No Driving Restrictions: No Weight Bearing: Full Weight No Smoking: If you smoke, Please STOP! Call for help. Follow-up with: Sudha Chapman CNM, ARNP [Provider Admit Priv/Credential] -
--- NOTE | 2020-12-15 11:13 | DISCHARGE SUMMARY ---
Discharge Summary Condition at Discharge: Good Discharge Disposition: 01 Home, Self Care - HOSPITAL COURSE Hospital Course: Date of admission: 12/12/2020 Date of discharge: 12/15/2020 Diagnosis on admission: 1. 24yo @ 40.1wks gestation by LMP c/w 9.5wk U/S 2. Elective IOL 3. GBS positive 4. FHR Category I Diagnosis on Discharge: 1. 24yo PPD#2 s/p TSVD viable male 2. 2nd degree perineal laceration -intact 3. 4. normal recovery Brief history: She is a patient of [facility] who presented for elective induction of labor on 12/12/2020 @ 1300. She was given 3 doses of 50mcg BC misoprostol for effective pre-induction cervical ripening and progressed to spontaneously labor. She was adequately treated for GBS with ampicillin per protocol and received a total of 3 IV doses. Secondary to recurrent variable decelerations an amnioinfusion was initiated and pt then progressed spontaneously to deliver a viable male on 12/14/2020 @ . Apgars were 9 and 9 and 1 and 5 minutes respectively. EBL 350mL. 2nd degree perineal laceration was repaired in standard fashion and under sterile conditions. She has been doing well in her course. She is ambulating and tolerating a regular diet. She is urinating without difficulty and her lochia is normal. Her pain is well controlled with oral medications. She is bonding well with her baby and with little difficulty. She has experienced some nipple tenderness and has been hand expressing to give her breasts a break which seems to be working well for her and she states she is feeling confident about feeding her baby and will supplement with formula as needed. She has been given instructions to continue taking her vitamin while and to continue taking ibuprofen and tylenol over the counter as needed for pain management. In addition she should continue taking a stool softener over the counter to titrate her stool to toothpaste consistency. She intends to follow up with myself and [facility] in 1 week or sooner if needed. She has been given precautions to call if she has any worsening fevers, chills, abdominal pain, increased vaginal bleeding or foul smelling vaginal lochia. She verbalized understanding and agrees to above plan. She denies further questions or concerns at this time. Physical Exam: Normocephalic, atraumatic, Heart RRR w/o M/G/R, lungs CTAB, abdomen soft and nontender with fundus firm at U-2, perineum intact, light lochia rubra, bilateral LE's trace edema, mood is good. supportive at the bedside. - ALLERGIES Allergies/Adverse Reactions: Allergies Allergy/AdvReac Type Severity Reaction Status Date / Time naproxen Allergy Nausea Verified 11/15/20 13:39 - MEDICATIONS Home Medications: Ambulatory Orders Medication Instructions Recorded Confirmed Iron Fum,Ps/Folic/Bcomp,C No.9 1 each PO DAILY 11/15/20 11/15/20 [Virt-Fefa Plus Capsule] - LABS Result Diagrams: 12/12/20 13:35
== END 2020-12-15 13:10 | disposition home or self-care (01) | DRG 807 ==
LOC: WFO 12:48 → FBP 12:52 → WFO 13:56
PROVIDERS: ADMIT Nurse Practitioner Obstetrics & Gynecology; ATTEND Nurse Practitioner Obstetrics & Gynecology
PROC: 3E0DXGC Introduction of Other Therapeutic Substance into Mouth and Pharynx, External Approach (ICD-10-PCS; 2020-12-12)
PROC: 10E0XZZ Delivery of Products of Conception, External Approach (ICD-10-PCS; principal; 2020-12-13)
PROC: 0KQM0ZZ Repair Perineum Muscle, Open Approach (ICD-10-PCS; 2020-12-13)
PROC: 3E0E7GC Introduction of Other Therapeutic Substance into Products of Conception, Via Natural or Artificial Opening (ICD-10-PCS; 2020-12-13)
PROC: 10907ZC Drainage of Amniotic Fluid, Therapeutic from Products of Conception, Via Natural or Artificial Opening (ICD-10-PCS; 2020-12-13)
DX: O48.0 Post-term pregnancy (principal); Z37.0 Single live birth; Z3A.40 40 weeks gestation of pregnancy; O99.824 Streptococcus B carrier state complicating childbirth; O70.1 Second degree perineal laceration during delivery; O76 Abnormality in fetal heart rate and rhythm complicating labor and delivery; O69.81X0 Labor and delivery complicated by cord around neck, without compression, not applicable or unspecified; Z86.16 Personal history of COVID-19
CPT/HCPCS: 36415; 85025; 86850; 86900; 86901; A9270; J1200; J7120